=== PATIENT | male | born 1955 | race Caucasian/White ===

== ENCOUNTER 2021-06-09 16:59 | Inpatient (IN) | payer OTHER, BC ==
[~2021-06-09] VITALS: Ht 175.3 cm; Wt 65.3 kg
[2021-06-09] MEDS ORDERED: NACL 0.9% 1,000 ML IV ONE (17:25)
[2021-06-09] MEDS ORDERED: METOPROLOL 5 MG/5 ML VIAL IVP ONE ×2 (17:25→19:10)
[2021-06-09 17:50] VITALS: BP 111/84
[2021-06-09] MEDS ORDERED: ASPIRIN 325 MG TAB PO ONE (18:15)
--- NOTE | 2021-06-09 18:29 | NUR ---
PT BROUGHT TO BED 6 VIA NAMITA VILLASEÑOR
--- NOTE | 2021-06-09 18:30 | NUR ---
65/M biba with c/o chest pain. Per EMS patient was picked up at urgent care which he was being seen for intermittent chest pressure and dizziness x1 week. EMS states patient had an "abnormal EKG" at the urgent care and was told to come to the ER. Patient denies pain at this time, denies sob, fever, headache, diaphoresis, nausea, vomiting or weakness. Patient has no other complaints at this time, patient heart rate [address] Phillips made aware of patient.
[2021-06-09 18:33] LABS: BASOPHILS % (AUTO) 0.6 % (0.0-2.0); EOSINOPHILS # (AUTO) 0.1 K/uL (0-0.4); EOSINOPHILS % (AUTO) 1.2 % (0.0-4.0); HEMATOCRIT 41.1 % (36-52); HEMOGLOBIN 13.8 g/dL (12.0-18.0); LYMPHOCYTES % (AUTO) 13.4 % (20.5-51.1); MEAN CORPUSCULAR HEMOGLOBIN 31 pg (27-31); MEAN CORPUSCULAR HGB CONC 34 g/dL (33-37); MEAN CORPUSCULAR VOLUME 92.7 fL (80-94); MONOCYTES # (AUTO) 0.6 K/uL (0.8-1.0); MONOCYTES % (AUTO) 7.9 % (1.7-9.3); NEUTROPHILS # (AUTO) 5.8 K/uL (1.8-7.7); NEUTROPHILS % (AUTO) 76.9 % (42.2-75.2); PLATELET COUNT (AUTO) 203 K/uL (140-450); RED BLOOD CELL COUNT(AUTO) 4.43 MIL/uL (4.20-6.10); RED CELL DISTRIBUTION WIDTH 12.9 % (11.6-13.7); WHITE BLOOD COUNT (AUTO) 7.5 K/uL (4.8-10.8)
[2021-06-09] MEDS ORDERED: METOPROLOL 5 MG/5 ML VIAL ONE (18:39)
[2021-06-09 18:59] LABS: MAGNESIUM 2.2 mg/dL (1.8-2.4); PHOSPHORUS 3.8 mg/dL (2.5-4.9); THYROID STIMULATING HORMONE 1.4 uIU/mL (0.34-3.74)
[2021-06-09 19:21] LABS: ALBUMIN 3.7 g/dL (3.4-5.0); ANION GAP 15.5 (8-16); CARBON DIOXIDE 24.8 mmol/L (21-32); CREATININE 0.9 mg/dL (0.6-1.3); POTASSIUM 4.3 mmol/L (3.5-5.1); TOTAL BILIRUBIN 0.5 mg/dL (0.0-1.0)
--- NOTE | 2021-06-09 19:35 | NUR ---
Rufina swab collected and walked to lab.
--- NOTE | 2021-06-09 19:44 | NUR ---
Pt report given to John FAGAN. Transfer of care at this time.
--- NOTE | 2021-06-09 19:46 | NUR ---
RECEIVED REPORT FROM JAYLEN FAGAN FOR CONTINUITY OF CARE
[2021-06-09] MEDS ORDERED: DILTIAZEM 25 MG/5 ML VIAL IVP ONE (19:50)
[2021-06-09] MEDS ORDERED: DILTIAZEM 30 MG TAB PO ONE (22:00)
[2021-06-09] MEDS ORDERED: guaiFENesin DM 200/20 MG-10 ML 10 ML UDC PO PRN (23:25)
[2021-06-09] MEDS ORDERED: DOCUSATE SODIUM 100 MG GELCAP PO PRN (23:25)
[2021-06-09] MEDS ORDERED: ZOLPIDEM 5 MG TAB PO PRN (23:25)
[2021-06-09] MEDS ORDERED: POTASSIUM CHLORIDE 10 MEQ TABER PO PRN (23:25)
[2021-06-09] MEDS ORDERED: ONDANSETRON 4 MG/2 ML VIAL IM/IVP PRN (23:25)
[2021-06-09] MEDS ORDERED: HYDROcodone/APAP 7.5/325 MG 1 TAB PO PRN (23:25)
[2021-06-09] MEDS ORDERED: ACETAMINOPHEN 325 MG TAB PO PRN (23:25)
[2021-06-09] MEDS ORDERED: NITROGLYCERIN 0.4 MG TAB SL PRN (23:30)
--- NOTE | 2021-06-09 23:30 | NUR ---
PT PROVIDED WITH SOME SNACKS AND DRINKS. NO OTHER REQUESTS MADE
[2021-06-09 23:59] LABS: FREE T4 (FREE THYROXINE) 0.89 ng/dL (0.76-1.46); MAGNESIUM 2.1 mg/dL (1.8-2.4); PHOSPHORUS 3.8 mg/dL (2.5-4.9)
[2021-06-10 00:04] LABS: PROTHROMBIN TIME 10.4 secs (10.8-13.4)
--- NOTE | 2021-06-10 00:25 | NUR ---
PT PULLED OUT IV. NEW IV INSERTED AT L AC G20. IVF INFUSING WELL.
[2021-06-10] MEDS: NACL 0.9% 1,000 ML IV SCH ×2 (00:28→21:09)
[2021-06-10] MEDS ORDERED: DILTIAZEM 30 MG TAB ONE (00:45)
[2021-06-10] MEDS: DILTIAZEM 60 MG TAB PO SCH ×3 (00:46→21:03)
--- NOTE | 2021-06-10 02:21 | NUR ---
ASLEEP. VISIBLE CHEST RISE AND FALL NOTED. NO S/SX OF DISTRESS NOTED. MONITORS IN PLACE. SAFETY MEASURES IN PLACE, CALL LIGHT WITHIN REACH. WILL CONTINUE TO MONITOR.
--- NOTE | 2021-06-10 04:31 | NUR ---
URINE SAMPLE COLLECTED AND SENT TO LAB
[2021-06-10 05:19] LABS: APPEARANCE,URINE CLEAR (CLEAR); BILIRUBIN,URINE NEGATIVE (NEGATIVE); BLOOD, URINE NEGATIVE (NEGATIVE); COLOR,URINE YELLOW (YELLOW); LEUKOCYTE ESTERASE ,URINE NEGATIVE (NEGATIVE); NITRITE, URINE NEGATIVE (NEGATIVE); PH,URINE 6.5 (5.0-9.0); UGLUCOSE NEGATIVE (NEGATIVE)
[2021-06-10 06:49] LABS: BASOPHILS % (AUTO) 0.9 % (0.0-2.0); EOSINOPHILS # (AUTO) 0.2 K/uL (0-0.4); EOSINOPHILS % (AUTO) 3.8 % (0.0-4.0); HEMATOCRIT 38.5 % (36-52); HEMOGLOBIN 12.9 g/dL (12.0-18.0); LYMPHOCYTES # (AUTO) 1.1 K/uL (2.0-11.5); LYMPHOCYTES % (AUTO) 21.1 % (20.5-51.1); MEAN CORPUSCULAR HEMOGLOBIN 31 pg (27-31); MEAN CORPUSCULAR HGB CONC 33 g/dL (33-37); MEAN CORPUSCULAR VOLUME 93.8 fL (80-94); MONOCYTES # (AUTO) 0.6 K/uL (0.8-1.0); MONOCYTES % (AUTO) 11.2 % (1.7-9.3); NEUTROPHILS # (AUTO) 3.3 K/uL (1.8-7.7); PLATELET COUNT (AUTO) 206 K/uL (140-450); RED BLOOD CELL COUNT(AUTO) 4.11 MIL/uL (4.20-6.10); RED CELL DISTRIBUTION WIDTH 12.9 % (11.6-13.7); WHITE BLOOD COUNT (AUTO) 5.3 K/uL (4.8-10.8)
--- NOTE | 2021-06-10 07:26 | NUR ---
ENDORSED TO MARVA FAGAN FOR CONTINUITY OF CARE
[2021-06-10 07:45] LABS: ANION GAP 13.8 (8-16); CARBON DIOXIDE 25.1 mmol/L (21-32); CREATININE 0.8 mg/dL (0.6-1.3); POTASSIUM 3.9 mmol/L (3.5-5.1)
[2021-06-10] MEDS ORDERED: lisinopriL 5 MG TAB PO SCH (09:00)
[2021-06-10] MEDS ORDERED: ECOTRIN 81 MG TABEC PO SCH (09:00)
--- NOTE | 2021-06-10 09:30 | NUR ---
Patient appears to be resting comfortably in bed. Vital Signs within normal limits. Respirations even and unlabored.
[2021-06-10] MEDS: PANTOPRAZOLE 40 MG TABEC PO SCH (09:54)
--- NOTE | 2021-06-10 09:54 | NUR ---
RECEIVED PATIENT REPORT FROM ER NURSE OVER THE PHONE.
--- NOTE | 2021-06-10 09:54 | NUR ---
Patient will be admitted to care of BERNADINE GUZMAN. Admited to TELE. Will go to room 127B. Belongings list completed. Report to ALONDRA FAGAN.
[2021-06-10 10:10] VITALS: BP 126/89
--- NOTE | 2021-06-10 10:10 | NUR ---
RECEIVED PATIENT FROM ER NURSE VIA CHARLEEN. PT ADMITTED FOR ATRIAL FLUTTER. PT IS AOX4, ABLE TO MAKE NEEDS KNOWN. RESPIRATIONS EVEN AND UNLABORED. NO DISTRESS NOTED AND ON ROOM AIR. S1 AND S2 HEARD. BILATERAL PULSE +2. SKIN IS WARM, DRY, AND INTACT. IV SITE ON LAC 20G INTACT AND PATENT. DENIES PAIN AT THE MOMENT. AMBULATORY. PLAN OF CARE DISCUSSED. SAFETY PRECAUTIONS IN PLACE. CALL LIGHT WITHIN REACH. WILL CONTINUE TO MONITOR.
--- NOTE | 2021-06-10 10:36 | NUR ---
ALL SCHEDULED MEDS GIVEN. PT IS STABLE. NO DISTRESS NOTED. WILL CONTINUE TO MONITOR.
[2021-06-10] MEDS: AMIODARONE 200 MG TAB PO SCH ×2 (11:15→21:01)
[2021-06-10] MEDS ORDERED: DILTIAZEM 30 MG TAB PO SCH (11:27)
[2021-06-10 12:00] VITALS: BP 85/53
[2021-06-10] MEDS: APIXABAN 2.5 MG TAB PO SCH ×2 (12:15→21:01)
--- NOTE | 2021-06-10 12:30 | NUR ---
HELD BP MEDS AND NOTIFIED MD REGARDING PATIENT'S BP. MD IS AWARE AND NO NEW ORDERS WERE RECEIVED.
--- NOTE | 2021-06-10 15:30 | NUR ---
CHECKED ON PATIENT. PATIENT IS ASLEEP. NOTED CHEST RISE AND FALL. NO DISTRESS NOTED. WILL CONTINUE TO MONITOR.
[2021-06-10 16:00] VITALS: BP 82/44
--- NOTE | 2021-06-10 16:58 | NUR ---
PATIENT HAS BEEN SCREENED AND CATEGORIZED LOW NUTRITION RISK. PATIENT WILL BE SEEN WITHIN 7 DAYS OF ADMISSION. 06/16/[address]
[2021-06-10] MEDS ORDERED: ATORVASTATIN 20 MG TAB PO SCH (17:00)
[2021-06-10] MEDS ORDERED: NACL 0.9% 1,000 ML IV SCH (17:50)
[2021-06-10] MEDS ORDERED: NACL 0.9% 500 ML IV SCH (17:50)
--- NOTE | 2021-06-10 17:50 | NUR ---
BP WAS LOW. NOTIFIED MD AND RECEIVED NEW ORDER FOR A 1 L BOLUS. WILL INFUSE AND REASSESS PT'S BP.
--- NOTE | 2021-06-10 19:25 | NUR ---
ENDORSED TO IMMIGRATION CASE WORKER NURSE FOR CONTINUITY OF CARE. PT IS STABLE.
--- NOTE | 2021-06-10 19:34 | NUR ---
RECEIVED REPORT FROM DAYSNJFT NURSE FOR CONTINUITY OF CARE.
[2021-06-10 20:00] VITALS: BP 113/55
--- NOTE | 2021-06-10 21:00 | NUR ---
NOTIFIED SERVER SECURITY ADMINISTRATOR DOCTOR FOR DILTIAZEM MED. SINCE PT BP WAS ON LOW SIDE, 102/57. ORDERED TO GIVE SCHEDULED MEDS AND RECHECK BP AFTER 1 HR.
--- NOTE | 2021-06-10 21:09 | NUR ---
ALL SCHEDULED MEDICATIONS GIVEN. PT TOLERATED WELL.
[2021-06-11] VITALS: BP 84/52
--- NOTE | 2021-06-11 01:21 | NUR ---
PATIENT ASLEEP, ON ROOM AIR, NO SIGNS OF DISTRESS. SAFETY MEASURES IMPLEMENTED. CALL LIGHT WITHIN REACH.
[2021-06-11 04:00] VITALS: BP 98/54
--- NOTE | 2021-06-11 04:00 | NUR ---
SCHEDULED AMIODARONE AND DILTIAZEM GIVEN. PT TOLERATED WELL
[2021-06-11] MEDS: AMIODARONE 200 MG TAB PO SCH (05:12)
[2021-06-11] MEDS: DILTIAZEM 60 MG TAB PO SCH (05:12)
[2021-06-11] MEDS: NACL 0.9% 1,000 ML IV SCH (06:59)
[2021-06-11 07:23] LABS: BASOPHILS # (AUTO) 0.1 K/uL (0.00-0.22); BASOPHILS % (AUTO) 0.9 % (0.0-2.0); EOSINOPHILS # (AUTO) 0.2 K/uL (0-0.4); EOSINOPHILS % (AUTO) 2.7 % (0.0-4.0); HEMATOCRIT 37.3 % (36-52); HEMOGLOBIN 12.6 g/dL (12.0-18.0); LYMPHOCYTES # (AUTO) 1.1 K/uL (2.0-11.5); LYMPHOCYTES % (AUTO) 19.8 % (20.5-51.1); MEAN CORPUSCULAR HEMOGLOBIN 32 pg (27-31); MEAN CORPUSCULAR HGB CONC 34 g/dL (33-37); MEAN CORPUSCULAR VOLUME 93.9 fL (80-94); MONOCYTES # (AUTO) 0.6 K/uL (0.8-1.0); NEUTROPHILS # (AUTO) 3.8 K/uL (1.8-7.7); NEUTROPHILS % (AUTO) 66.6 % (42.2-75.2); PLATELET COUNT (AUTO) 193 K/uL (140-450); RED BLOOD CELL COUNT(AUTO) 3.97 MIL/uL (4.20-6.10); RED CELL DISTRIBUTION WIDTH 13.2 % (11.6-13.7); WHITE BLOOD COUNT (AUTO) 5.7 K/uL (4.8-10.8)
--- NOTE | 2021-06-11 07:30 | NUR ---
received pt AAOx4. no SOB noted. no c/o pain at this time. instructed pt to call for assistance, call light within reach, pt verbalized understanding.
--- NOTE | 2021-06-11 07:41 | NUR ---
ENDORSE PT TO DAYSHIFT NURSE FOR CONTINUITY OF CARE.
[2021-06-11 08:00] VITALS: BP 93/55
[2021-06-11 09:26] LABS: ANION GAP 13.9 (8-16); CARBON DIOXIDE 24.2 mmol/L (21-32); CREATININE 0.9 mg/dL (0.6-1.3); POTASSIUM 4.1 mmol/L (3.5-5.1)
[2021-06-11] MEDS: PANTOPRAZOLE 40 MG TABEC PO SCH (09:40)
[2021-06-11] MEDS: APIXABAN 2.5 MG TAB PO SCH (09:43)
[2021-06-11 10:06] LABS: T4 (THYROXINE) 5.6 ug/dL (4.5-12.0)
[2021-06-11 12:00] VITALS: BP 104/67
[2021-06-11] MEDS ORDERED: DILT120C95 PO (12:53)
[2021-06-11] MEDS ORDERED: APIX2.5 PO (12:53)
[2021-06-11] MEDS ORDERED: AMIO200T10 PO (12:53)
--- NOTE | 2021-06-11 16:06 | NUR ---
DISCHARGE INSTRUCTIONS GIVEN TO PT WHICH VERBALIZED FULL UNDERSTANDING OF THE INSTRUCTIONS AND THE NEED TO FOLLOW UP WITH ON PCP IN 3-5 DAYS. PT ALSO MADE AWARE THAT HER SCRIPTS WERE SENT TO PREFERRED PHARMACY. ARM BANDS AND IV REMOVED, CANNULA TIP INTACT. PT AWAITING FOR TO PICK HIM UP.
--- NOTE | 2021-06-11 16:15 | NUR ---
PT ESCORTED TO THE FRONT LOBBY IN STABLE CONDITION, AMBULATORY. NO SOB NOTED NO COMPLAINTS MADE. PT IS D/C HOME WITH .
[2021-06-11] MEDS ORDERED: AMIODARONE 200 MG TAB PO SCH (21:00)
[2021-06-12] MEDS ORDERED: DILTIAZEM 120 MG CAPER PO SCH (09:00)
== END 2021-06-11 14:20 | disposition home or self-care (01) | DRG 310 ==
LOC: MED 16:59 → MTU 22:49 → MMU 06-10 06:35 → MTU 06-10 10:15
PROVIDERS: ADMIT Family Medicine; ATTEND Family Medicine
DX: I48.92 Unspecified atrial flutter (principal); R07.89 Other chest pain; Z20.822 Contact with and (suspected) exposure to COVID-19
CPT/HCPCS: 36415; 71045; 80048; 80053; 81003; 82150; 83036; 83690; 83735; 83880; 84100; 84436; 84439; 84443; 84479; 84484; 85025; 85610; 85730; 87081; 93005; 96374; 96375; 96376; 99291; J1644; J3490; Q0092